=== PATIENT | male | born 1970 | race Hispanic/Latino ===

== ENCOUNTER 2022-02-20 23:45 | Emergency (ER) | payer OTHER ==
[~2022-02-20 23:45] MED LIST: AMIODARONE 150 MG/3 ML INJ IV ONE; EPINEPHrine 1 MG/10 ML SYRINGE ONE; SODIUM BICARB 8.4% 50 MEQ/50 ML SYRINGE IV ONE
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
== END 2022-02-21 04:28 ==
LOC: ED 23:45
DX: I46.9 Cardiac arrest, cause unspecified (principal)
CPT/HCPCS: 92950; 99285; J0171; J0282